=== PATIENT | female | born 1970 ===

== ENCOUNTER 2019-09-12 06:20 | Day surgery (SDC) | payer OTHER ==
[~2019-09-12] VITALS: Ht 167.6 cm; Wt 58.5 kg
[~2019-09-12 06:20] MED LIST: SUMATRIPTAN PO; TOPAMAX50 MG PO
== END 2019-09-12 11:20 | disposition home or self-care (01) ==
LOC: CIR.AMB 06:20 → ADM 07:30 → CIR.AMB 11:20
DX: M75.01 Adhesive capsulitis of right shoulder (principal); M65.811 Other synovitis and tenosynovitis, right shoulder